=== PATIENT | male | born 1985 | race Caucasian/White ===

== ENCOUNTER 2022-12-18 13:14 | Emergency (ER) | payer OTHER ==
[2022-12-18] MEDS ORDERED: Lidocaine 1% 10 ML MDV INJECT ONE (13:48)
== END 2022-12-18 15:02 | disposition other institution (70) ==
LOC: JD.ED 13:14
DX: S61.012A Laceration without foreign body of left thumb without damage to nail, initial encounter (principal); Z88.8 Allergy status to other drugs, medicaments and biological substances; Z72.0 Tobacco use; W26.8XXA Contact with other sharp object(s), not elsewhere classified, initial encounter
CPT/HCPCS: 12001; 99283; 99284; J3490

== ENCOUNTER 2022-12-27 22:14 | Emergency (ER) | payer OTHER | END 2022-12-27 22:41 | disposition home or self-care (01) | LOC: JD.ED 22:14 | DX: S61.012D Laceration without foreign body of left thumb without damage to nail, subsequent encounter (principal); Z48.02 Encounter for removal of sutures; W26.8XXD Contact with other sharp object(s), not elsewhere classified, subsequent encounter | CPT/HCPCS: 99281 ==

== ENCOUNTER 2023-03-14 00:12 | Emergency (ER) | payer OTHER | END 2023-03-14 06:34 | disposition home or self-care (01) | LOC: JD.ED 00:12 | DX: F32.A Depression, unspecified (principal); F10.129 Alcohol abuse with intoxication, unspecified; R45.851 Suicidal ideations; R45.850 Homicidal ideations; Z88.8 Allergy status to other drugs, medicaments and biological substances | CPT/HCPCS: 99283; 99284 ==